=== PATIENT | female | born 1975 | race Two or more races ===

== ENCOUNTER 2019-12-04 14:22 | Inpatient (IN) | payer BC ==
[~2019-12-04] VITALS: Ht 157.5 cm; Wt 82.9 kg
[~2019-12-04 14:22] MED LIST: ALPR0.254; BACL20TA PO; BUPR20DI; CARI350T22; CEPH500C PO; CITA-30; CLON0.5T; FENT25DI2 TD; GABA300C10 PO; HYDR-1421; HYDR25TA4; HYDR8TAB46 OR; LEVE500T22 PO; LISI-285; LISI10TA6 PO; PAR20T PO
[2019-12-04] MEDS ORDERED: SODIUM CHLORIDE 0.9% 1,000 ML IV ONE (14:45)
[2019-12-04 15:07] LABS: Basophils # (auto) 0 10 ^3/uL (0-0.2); Basophils % (auto) 0.2 % (0.0-2.0); Eosinophils # (auto) 0.3 10 ^3/uL (0-0.8); Eosinophils % (auto) 2.5 % (0.0-7.0); Hematocrit 32.2 % (36.0-46.0); Hemoglobin 10.8 g/dL (12.2-16.2); Lymphocytes % (auto) 8.7 % (10.0-50.0); Mean Corpuscular Hemoglobin 27.1 pg (28.0-32.0); Mean Corpuscular Hgb Conc. 33.6 g/dL (32.0-36.0); Mean Corpuscular Volume 80.7 fL (80.0-100.0); Monocytes # (auto) 0.2 10 ^3/uL (0-1.3); Monocytes % (auto) 1.4 % (0.0-12.0); Neutrophils # (auto) 10.1 10 ^3/uL (1.6-8.6); Neutrophils % (auto) 87.2 % (37.0-80.0); Platelet Count (auto) 250 10^3/uL (140-450); Red Blood Cells 3.98 10^6/uL (4.0-5.20); Red Cell Distribution Width 14.4 % (11.8-14.3); White Blood Cell 11.5 10^3/uL (4.4-10.8)
[2019-12-04 15:35] LABS: Albumin 3.5 g/dL (3.4-5.0); Anion Gap 10 (5-15); Blood Urea Nitrogen 13 mg/dL (7-18); Calcium 7.6 mg/dL (8.5-10.1); Carbon Dioxide 20 mmol/L (21-32); Chloride 105 mmol/L (98-107); Glucose 108 mg/dL (74-106); Magnesium 1.8 mg/dL (1.6-2.6); Sodium 135 mmol/L (136-145)
[2019-12-04 15:39] LABS: Alanine Aminotransferase 16 U/L (13-56); Alkaline Phosphatase 47 U/L (45-117); Aspartate Aminotransferase 15 U/L (15-37); BUN/Creatinine Ratio 13.3; Bilirubin, Total 0.9 mg/dL (0.2-1.0); GFR African American 80 mL/min; GFR Non-African American 66 mL/min; Total Protein 6.4 g/dL (6.4-8.2)
[2019-12-04 15:42] LABS: Potassium 2.5 mmol/L (3.5-5.1)
[2019-12-04] MEDS ORDERED: SODIUM CHLORIDE 0.9% 1,000 ML IVB ONE (15:55)
[2019-12-04] MEDS ORDERED: POTASSIUM CHL 20 Meq TABLET PO ONE (16:00)
[2019-12-04 16:31] LABS: INR 1.07 (0.9-1.15); Partial Thromboplastin Time 29.6 sec (23.64-32.05)
[2019-12-04] MEDS ORDERED: ACETAMINOPHEN 325 MG TAB PO ONE (17:15)
[2019-12-04 17:22] LABS: Urine Bacteria NONE SEEN /hpf (None Seen); Urine Blood Negative /uL (Negative); Urine Hyaline Cast FEW /lpf (0 - 2); Urine Specific Gravity 1.005 (1.001-1.035); Urine WBC <1 /hpf (0 - 5)
[2019-12-04 17:36] LABS: Alcohol, Urine < 3.0 mg/dL (0-10); Amphetamine Screen, Urine NEGATIVE (NEGATIVE); Barbiturate Scree,Urine NEGATIVE (NEGATIVE); Benzodiazephine Screen, Urine POSITIVE (NEGATIVE); Cannabinoid Screen, Urine NEGATIVE (NEGATIVE); Cocaine Screen, Urine NEGATIVE (NEGATIVE); Phencyclidine Screen, Urine NEGATIVE (NEGATIVE)
[2019-12-04 17:44] LABS: Opiate Scree,Urine POSITIVE (NEGATIVE)
[2019-12-04] MEDS ORDERED: ONDANSETRON HCL 4 MG/2 ML VIAL IV PRN (19:30)
[2019-12-04] MEDS ORDERED: MORPHINE SULF INJ 2 MG/ML SYRINGE 1ML IV PRN (19:30)
[2019-12-04] MEDS ORDERED: NITROGLYCERIN 0.4 MG SL TAB SL PRN (19:30)
[2019-12-04] MEDS: SOD CHL 0.9%/ KCL 40MEQ 1,000 ML IV SCH (20:00)
[2019-12-04] MEDS: OXYCODONE W/ ACETAMINOPHEN 5/325MG TABLET PO PRN (20:07)
[2019-12-04 21:35] VITALS: BP 138/72
--- NOTE | 2019-12-04 21:35 | NUR ---
Telemetry admit from ER RONNA WILSONACE admitted to Telemetry unit after SBAR received. Patient oriented to JUAN C MADDEN RN primary RN, unit, room, bed, and unit policies regarding patient care and visiting hours. Patient now on continuous telemetry monitoring, tele box # [id number] and telemetry reading on arrival to unit is SR 93. Patient placed on bedside oxygen, weighed by bedscale and encouraged to call if they need something. All questions and concerns addressed, patient verbalized understanding. fall precautions in place.
[2019-12-04 21:58] VITALS: BP 138/72
[2019-12-04] MEDS: DOCUSATE SOD 100 MG CAP PO SCH (22:00)
[2019-12-04] MEDS: HYDROmorphone HCL 2 MG/ML VL IV PRN (22:24)
[2019-12-04] MEDS ORDERED: PERCOT PO (23:24)
[2019-12-04] MEDS ORDERED: TIZA4CAP PO (23:24)
[2019-12-04] MEDS ORDERED: GABA-339 PO (23:24)
[2019-12-04] MEDS ORDERED: MORP1TAB14 PO (23:24)
[2019-12-04] MEDS ORDERED: HYDR2TAB58 PO (23:24)
[2019-12-04] MEDS ORDERED: ALPR0.5T PO (23:24)
--- NOTE | 2019-12-05 00:54 | NUR ---
SPOKE WITH HOSPITALIST PATIENT REPORTING CHRONIC BACK PAIN OF 8/10 WITH NO RELIEF AFTER ADMINISTERING PAIN MEDICATIONS SCHEDULE. NO NEW ORDERS RECEIVED BY GRIEVANCE AND APPEALS COORDINATOR STEPHEN.
[2019-12-05] MEDS: HYDROmorphone HCL 2 MG/ML VL IV PRN ×3 (03:22→13:02)
--- NOTE | 2019-12-05 03:22 | NUR ---
pain pain of 9/10 to back. patient medicated per md orders
[2019-12-05 05:00] VITALS: BP 115/74
[2019-12-05] MEDS: SOD CHL 0.9%/ KCL 40MEQ 1,000 ML IV SCH ×2 (05:49→15:30)
[2019-12-05] MEDS: OXYCODONE W/ ACETAMINOPHEN 5/325MG TABLET PO PRN (06:58)
--- NOTE | 2019-12-05 06:58 | NUR ---
pain 8/10 to back. patient medicated per md order
--- NOTE | 2019-12-05 07:07 | NUR ---
report given to dayshift rn. patient is awake and alert reports no distress
--- NOTE | 2019-12-05 07:28 | NUR ---
RECEIVED REPORT FROM [facility] SHIFT RN. PATIENT AWAKE, ALERT AND ORIENTED X4. DENIES SOB, REPORTS 8/10 BACK PAIN. WILL MEDICATE PER eMAR. PLAN OF CARE DISCUSSED, PATIENT VERBALIZED UNDERSTANDING. BED IN LOW AND LOCKED POSITION. CALL LIGHT AND PHONE WITHIN REACH. ENCOURAGED TO CALL FOR ASSISTANCE PRN. WILL CONTINUE TO MONITOR Q1HR AND PRN.
[2019-12-05 08:00] VITALS: BP 120/73
[2019-12-05 08:50] VITALS: BP 120/73
[2019-12-05] MEDS: DOCUSATE SOD 100 MG CAP PO SCH (10:00)
[2019-12-05] MEDS ORDERED: PANTOPRAZOLE 40 MG TAB PO SCH (10:00)
[2019-12-05] MEDS ORDERED: CYCL1TAB18 PO (10:19)
[2019-12-05] MEDS ORDERED: CHOL20007 PO ×2 (10:19→10:20)
[2019-12-05] MEDS ORDERED: NAP500T PO (10:19)
[2019-12-05] MEDS ORDERED: GABA300C10 PO (10:19)
[2019-12-05] MEDS ORDERED: MORP1TAB12 PO ×2 (10:19→10:21)
[2019-12-05 12:37] VITALS: BP 120/76
[2019-12-05] MEDS ORDERED: POTASSIUM CHL 20 Meq TABLET PO ONE (12:45)
[2019-12-05 16:18] VITALS: BP 100/66
--- NOTE | 2019-12-05 16:35 | NUR ---
PATIENT DISCHARGED AT THIS TIME PER MD'S ORDER. DISCHARGE SUMMARY AND FOLLOW UP INSTRUCTION GIVEN. PATIENT VERBALIZED UNDERSTANDING. IV DISCONTINUED AND TELE MONITOR SENT TO ICU. PATIENT AMBULATORY, ALERT AND ORIENTED X4 DURING DISCHARGE.
== END 2019-12-05 16:35 | disposition home or self-care (01) | DRG 392 ==
LOC: ER 14:22 → TELE 14:23 → TELE-CENTR 21:35
PROVIDERS: ADMIT Nurse Practitioner Acute Care; ATTEND Family Medicine
DX: K52.9 Noninfective gastroenteritis and colitis, unspecified (principal); D50.8 Other iron deficiency anemias; E66.9 Obesity, unspecified; E86.0 Dehydration; E86.1 Hypovolemia; E87.6 Hypokalemia; G89.29 Other chronic pain; I10 Essential (primary) hypertension; K59.00 Constipation, unspecified; F41.8 Other specified anxiety disorders; D72.829 Elevated white blood cell count, unspecified; F11.90 Opioid use, unspecified, uncomplicated; M54.5 Low back pain; I95.9 Hypotension, unspecified; Z68.33 Body mass index [BMI] 33.0-33.9, adult; Z79.899 Other long term (current) drug therapy; Z80.3 Family history of malignant neoplasm of breast; Z81.8 Family history of other mental and behavioral disorders; Z82.49 Family history of ischemic heart disease and other diseases of the circulatory system; Z83.3 Family history of diabetes mellitus; Z90.710 Acquired absence of both cervix and uterus
CPT/HCPCS: 36415; 70450; 71045; 80053; 80307; 80320; 81001; 81025; 83735; 84132; 84443; 84484; 85025; 85610; 85730; 93005; 96361; 96365; 96366; G0378

== ENCOUNTER 2022-03-19 22:34 | Emergency (ER) | payer BC ==
[~2022-03-19] VITALS: Ht 157.5 cm; Wt 79.5 kg
[~2022-03-19 22:34] MED LIST changes: -ALPR0.254; +ALPR0.5T PO; -BACL20TA PO; -BUPR20DI; -CARI350T22; -CEPH500C PO; +CHOL20007 PO; -CITA-30; -CLON0.5T; -FENT25DI2 TD; -GABA300C10 PO; -HYDR-1421; -HYDR8TAB46 OR; -LEVE500T22 PO; -LISI-285; +LISI-716 PO; -LISI10TA6 PO; +MORP1TAB12 PO; -PAR20T PO; +PERCOT PO; +TIZA4CAP PO
[2022-03-20 00:48] VITALS: BP 138/97
[2022-03-20] MEDS ORDERED: diphenhdrAMINE HCL 50 MG/1 ML VL IM ONE (03:15)
[2022-03-20] MEDS ORDERED: LORazepam 2MG/ML-1ML VIAL IM ONE (05:15)
== END 2022-03-20 05:31 | disposition home or self-care (01) ==
LOC: ER 22:34
DX: F41.9 Anxiety disorder, unspecified (principal); F30.9 Manic episode, unspecified; I10 Essential (primary) hypertension; Z90.710 Acquired absence of both cervix and uterus
CPT/HCPCS: 70450; 93005; 96372; 99284; J1200; J2060

== ENCOUNTER 2022-03-23 05:20 | Emergency (ER) | payer BC ==
[~2022-03-23] VITALS: Ht 157.5 cm; Wt 80.8 kg
[2022-03-23 06:24] LABS: Basophils # (auto) 0.1 10 ^3/uL (0-0.2); Basophils % (auto) 0.6 % (0.0-2.0); Eosinophils # (auto) 0.1 10 ^3/uL (0-0.8); Eosinophils % (auto) 0.7 % (0.0-7.0); Hematocrit 39.7 % (36.0-46.0); Hemoglobin 13.7 g/dL (12.2-16.2); Lymphocytes # (auto) 2.7 10 ^3/uL (0.4-5.4); Lymphocytes % (auto) 25.5 % (10.0-50.0); Mean Corpuscular Hemoglobin 27.4 pg (28.0-32.0); Mean Corpuscular Hgb Conc. 34.5 g/dL (32.0-36.0); Mean Corpuscular Volume 79.6 fL (80.0-100.0); Monocytes # (auto) 0.6 10 ^3/uL (0-1.3); Monocytes % (auto) 5.9 % (0.0-12.0); Neutrophils # (auto) 7.1 10 ^3/uL (1.6-8.6); Neutrophils % (auto) 67.3 % (37.0-80.0); Nucleated Red Blood Cells % 0.1 %; Red Blood Cells 4.99 10^6/uL (4.0-5.20); Red Cell Distribution Width 15.3 % (11.8-14.3); White Blood Cell 10.5 10^3/uL (4.4-10.8)
[2022-03-23 06:25] LABS: Albumin 4.1 g/dL (3.4-5.0); BUN/Creatinine Ratio 8.3; Calcium 9.5 mg/dL (8.5-10.1); Potassium 3.8 mmol/L (3.5-5.1)
[2022-03-23 06:27] LABS: Bilirubin, Total 0.3 mg/dL (0.2-1.0); Total Protein 7.8 g/dL (6.4-8.2)
[2022-03-23 06:32] LABS: INR 0.93 (0.9-1.15); Partial Thromboplastin Time 31.6 sec (24.6-33.4)
[2022-03-23] MEDS ORDERED: clonazePAM 0.5 MG TAB PO ONE (07:00)
[2022-03-23 08:02] LABS: Urine Bacteria FEW /hpf (None Seen); Urine Blood Negative /uL (Negative); Urine Specific Gravity 1.004 (1.001-1.035); Urine WBC 1 /hpf (0 - 5)
[2022-03-23 08:15] LABS: Alcohol, Urine < 3.0 mg/dL (0-10); Amphetamine Screen, Urine NEGATIVE (NEGATIVE); Barbiturate Scree,Urine NEGATIVE (NEGATIVE); Benzodiazephine Screen, Urine POSITIVE (NEGATIVE); Cannabinoid Screen, Urine NEGATIVE (NEGATIVE); Cocaine Screen, Urine NEGATIVE (NEGATIVE); Phencyclidine Screen, Urine NEGATIVE (NEGATIVE)
[2022-03-23 08:23] LABS: Opiate Scree,Urine NEGATIVE (NEGATIVE)
[2022-03-23] MEDS ORDERED: CLON0.5T3 GT (11:14)
[2022-03-23 12:00] VITALS: BP 149/100
== END 2022-03-23 12:08 | disposition home or self-care (01) ==
LOC: ER 05:20
DX: F13.930 Sedative, hypnotic or anxiolytic use, unspecified with withdrawal, uncomplicated (principal); F41.1 Generalized anxiety disorder; R25.1 Tremor, unspecified; I10 Essential (primary) hypertension; Z90.710 Acquired absence of both cervix and uterus; Z88.6 Allergy status to analgesic agent
CPT/HCPCS: 36415; 71045; 80053; 80307; 81001; 83880; 84443; 84484; 85025; 85610; 85730; 93005

== ENCOUNTER 2025-03-09 11:20 | Emergency (ER) | payer BC ==
[~2025-03-09] VITALS: Ht 157.5 cm; Wt 79.5 kg
[~2025-03-09 11:20] MED LIST changes: +CLON0.5T3 GT; -LISI-716 PO; +LISI10TA34 PO
[2025-03-09] MEDS: methylPREDNISolone SOD SUCC 40 MG/ML VL IM ONE (13:11)
[2025-03-09] MEDS: MORPHINE SULFATE 4 MG/ML SYR/VIAL IM ONE (13:27)
[2025-03-09] MEDS ORDERED: PRED20TA2 PO (14:36)
[2025-03-09] MEDS ORDERED: GABA-1250 PO (14:36)
--- NOTE | 2025-03-09 14:36 | ED.PDOC ---
History of Present Illness HPI Comments 49-year-old female patient presents to the clinic for pain to cheeks, forehead and chin. Patient states that she has history of trigeminal neuralgia. Patient states that she last had a flare-up about 5 years ago. Patient is unsure what medications she was given. Patient states that she felt an electric getting pain on left side of face. Patient is very anxious about the pain increasing and having a similar experience. Patient states that she is currently not pulling of the neurologist. Patient states she is not taking anything for the trigeminal neuralgia. Patient denies any stressful situations occurring today. Chief Complaint: Face pain Time Seen by MD: 11:29 Primary Care Provider: SURESH Ward Notes: Nurses Notes, Medications, Allergies Allergies: Coded Allergies: Tramadol (Unverified Adverse Reaction, Severe, 06/28/15) PATIENT STATES BACK OF THROAT ITCHES. Home Meds Active Scripts Ofloxacin (Otic) (FLOXIN OTIC) [address], 2 DROP OT QID for 7 Days, #56 DROP Prov:MARCELO DEVINE [facility] 03/09/25 Hydrocodone-Acetaminophen (Hydrocodone Bitartrate/AC 5-325 mg) 1 Tab Tab, 1 TAB PO Q6HP PRN for 2 Days, #8 TAB 0 Refills Prov:MARCELO DEVINE [facility] 03/09/25 Prednisone (Prednisone) 20 Mg Tab, 40 MG PO DAILY for 5 Days, #10 MG Prov:MARCELO DEVINE [facility] 03/09/25 Gabapentin (Gabapentin) 300 Mg Cap, 1 CAP PO TID, #90 CAP 3 Refills Prov:MARCELO DEVINE [facility] 03/09/25 Clonazepam (KlonoPIN TABLET) 0.5 Mg Tb, 0.5 MG GT qhs for 5 Days, #5 TAB Prov:JOLYNN FRANKLIN MD 03/23/22 Reported Medications Morphine Sulfate (Morphine Sulfate Cr) 15 Mg Tab, 1 TAB PO BID, #60 TAB 12/05/19 Cholecalciferol (VITAMIN D3) 2,000 Unit Tab, 1 TAB PO DAILY, #30 TAB 5 Refills 12/05/19 Tizanidine Hydrochloride (Zanaflex) 4 Mg Cap, 2 MG PO TID, #30 CAP 12/04/19 Alprazolam (Xanax) 0.5 Mg Tb, 1 TAB PO BID, #60 TAB 12/04/19 Oxycodone W/ Acetaminophen (Percocet 5/325MG) 1 Tab Tb, 1 TAB PO BID, #60 TAB 12/04/19 Lisinopril (Lisinopril) 10 Mg Tab, 10 MG PO DAILY for 30 Days, MG 09/07/15 Hydrochlorothiazide (Hydrochlorothiazide) 25 Mg Tab, #90 06/27/15 Discontinued Scripts Hydrocodone-Acetaminophen (Hydrocodone Bitartrate/AC 5-325 mg) 1 Tab Tab, 1 TAB PO Q6HR for 2 Days, #8 TAB 0 Refills Prov:MARCELO DEVINE [facility] 03/09/25 Information Source: Patient Mode of Arrival: Ambulatory Past Medical History PAST MEDICAL HISTORY: Anxiety, Depression, HTN Surgical History: Hysterectomy ORDER EDITOR History: No Pertinent ORDER EDITOR History Family History Family History: No family hx of HTN, Family hx of HTN Social History Smoker: Non-Smoker Alcohol: Occasionally Drugs: Denies Drug Use Lives In: Home Constitutional: denies: chills, diaphoresis, fatigue, fever, malaise, sweats, weakness, others EENTM: reports: ear pain Respiratory: denies: cough, hemoptysis, orthopnea, SOB at rest, shortness of breath, SOB with excertion, stridor, wheezing, others Genitourinary: denies: abnormal vagina bleeding, burning, dyspareunia, dysuria, flank pain, frequency, hematuria, incontinence, pain, , vagina discharge, urgency, others Neurological: reports: paresthesia Musculoskeletal: denies: back pain, gout, joint pain, joint swelling, muscle pain, muscle stiffness, neck pain, others Integumetry: denies: bruises, change in color, change in hair/nails, dryness, laceration, lesions, lumps, rash, wounds, others Allergic/Immunocompromised: denies: Difficulty Healing, Frequent Infections, Hives, Itching, others Hematologic/Lymphatic: denies: anemia, blood clots, easy bleeding, easy bruising, swollen glands, others Endocrine: denies: excessive hunger, excessive sweating, excessive thirst, excessive urination, flushing, intolerance to cold, intolerance to heat, unexplained weight gain, unexplained weight loss, others Psychiatric: denies: anxiety, bipolar disorder, depression, hopeless, panic disorder, schizophrenia, sleepless, suicidal, others All Other Systems: Reviewed and Negative Physical Exam General Appearance: No Apparent Distress, Normal HEENT: Pharynx Normal, TMs Normal, Other (erythema in the left ear canal) Neck: Full Range of Motion, Non-Tender, Normal, Normal Inspection Respiratory: Chest Non-Tender, Lungs Clear, No Accessory Muscle Use, No Respiratory Distress, Normal Breath Sounds Cardiovascular: No Edema, No JVD, No Murmur, No Gallop, Normal Peripheral Pul ses, Regular Rate/Rhythm Breast Exam: Deferred Gastrointestinal: No Organomegaly, Non Tender, No Pulsatile Mass, Normal Bowel Sounds, Soft Genitalia: Deferred Pelvic: Deferred Rectal: Deferred Extremities: No calf tenderness, Normal capillary refill, Normal inspection, Normal range of motion, Non-tender, No pedal edema Musculoskeletal : Apperance: Normal Neurologic: Alert, commercial real estate attorney II-XII nml as Tested, No Motor Deficits, Normal Affect, Normal Mood (anxious), No Sensory Deficits Cerebellar Function: Normal Reflexes: Normal Skin: Dry, Normal Color, Warm, Other (tenderness to bilateral cheeks and forehead, no neuro defecits noted) Lymphatic: No Adenopathy Was a procedure done? Was a procedure done?: No Differential Dx Considerations may include: trigeminal neuralgia, [place] Palsy, Anxiety X-Ray, Labs, Meds, VS Vital Signs Date Time Temp Pulse Resp B/P (MAP) Pulse Ox O2 Delivery O2 Flow Rate FiO2 03/09/25 16:05 98.7 78 16 124/89 (101) 97 98.7 03/09/25 15:10 72 18 135/72 03/09/25 13:27 80 17 132/95 03/09/25 12:44 80 17 97 Room Air 03/09/25 12:44 98.7 80 17 132/95 (107) 97 98.7 03/09/25 11:22 98.3 94 19 149/77 98 98.3 Current Medications Medications (Trade) Dose Ordered Sig/Manasa Route Start Time Stop Time Status Last Admin Methylprednisolone Sodium Succinate (Solu Medrol) 40 mg ONCE ONCE IM 03/09/25 12:45 03/09/25 13:09 DC 03/09/25 13:11 Morphine Sulfate 5 mg ONCE ONCE IM 03/09/25 12:45 03/09/25 13:23 DC 03/09/25 13:27 Ketorolac Tromethamine (Toradol Injection) 60 mg ONCE ONCE IM 03/09/25 14:45 03/09/25 14:52 DC 03/09/25 15:10 Lorazepam (Ativan Inj) 0.5 mg ONCE ONCE IM 03/09/25 15:45 03/09/25 15:46 DC 03/09/25 15:37 X-Ray, Labs, Meds, VS Comment On re-evaluation patient has symptomatic improvement. Patient is stable for discharge at this time. All test results and diagnostic imaging have been interpreted. All diagnostic findings, discharge care, and education instruction provided to the patient. Follow-up with PCP in 2-3 days Patient verbalized understanding, discharge instructions and agrees to treatment plan Vital signs are stable Patient is ambulatory Patient advised of which symptoms necessitate a return visit to the emergency room. Patient to return emergency room for any new worsening symptoms. Patient is aware that the purpose of this visit is for an acute medical emergency requiring emergent stabilization. Chronic conditions, including malignancies have not been ruled out. Patient is instructed to follow up with PCP as directed for continued care and workup. If unable to arrange follow up, patient is to return to the emergency room for reassessment. Patient was given verbal and written discharge instructions and acknowledges understanding Time of 1ST Reevaluation: 15:30 Reevaluation 1ST: Improved Time of 2ND Reevaluation: 16:40 Reevaluation 2ND: Improved Patient Education/Counseling: Diagnosis, Treatment, Prognosis Family Education/Counseling: No Family Present Change of Shift?: No SEPSIS Sepsis Screen Date sepsis recognized/suspect: Mar 09, 2025 Time Sepsis recognized/suspect: 1122 Recent Procedure: No On Antibiotic Therapy: No Respiratory Rate >20: No Heart Rate >90: No Temp<36 C (96.8 F) or >38.3 C: No SBP <90 or MAP <65 mmHG: No New Acute Mental Status Change: No Is the patient on CPAP, BIPAP,: No Vital Signs Date Time Temp Pulse Resp B/P (MAP) Pulse Ox O2 Delivery O2 Flow Rate FiO2 03/09/25 16:05 98.7 78 16 124/89 (101) 97 98.7 03/09/25 15:10 72 18 135/72 03/09/25 13:27 80 17 132/95 03/09/25 12:44 80 17 97 Room Air 03/09/25 12:44 98.7 80 17 132/95 (107) 97 98.7 03/09/25 11:22 98.3 94 19 149/77 98 98.3 Medications Medications Dose Ordered Sig/Manasa Route Start Time Stop Time Status Last Admin Dose Admin Ketorolac Tromethamine 60 mg ONCE ONCE IM 03/09/25 14:45 03/09/25 14:52 DC 03/09/25 15:10 Lorazepam 0.5 mg ONCE ONCE IM 03/09/25 15:45 03/09/25 15:46 DC 03/09/25 15:37 Methylprednisolone Sodium Succinate 40 mg ONCE ONCE IM 03/09/25 12:45 03/09/25 13:09 DC 03/09/25 13:11 Morphine Sulfate 5 mg ONCE ONCE IM 03/09/25 12:45 03/09/25 13:23 DC 03/09/25 13:27 Departure 1 Departure Time of Disposition: 16:55 Impression: Primary Impression: Trigeminal neuralgia pain Additional Impressions: Otitis externa Qualified Codes: H60.502 - Unspecified acute noninfective otitis externa, left ear Anxiety Disposition: 01 HOME / SELF CARE / HOMELESS Condition: Stable e-Prescriptions Ofloxacin (Otic) (FLOXIN OTIC) [address] 2 DROP OT QID for 7 Days, #56 DROP Prov: MARCELO DEVINE [facility] 03/09/25 Hydrocodone-Acetaminophen (Hydrocodone Bitartrate/AC 5-325 mg) 1 Tab Tab 1 TAB PO Q6HP PRN for 2 Days, #8 TAB 0 Refills Prov: MARCELO DEVINE [facility] 03/09/25 Prednisone (Prednisone) 20 Mg Tab 40 MG PO DAILY for 5 Days, #10 MG Prov: MARCELO DEVINE [facility] 03/09/25 Gabapentin (Gabapentin) 300 Mg Cap 1 CAP PO TID, #90 CAP 3 Refills Prov: MARCELO DEVINE [facility] 03/09/25 Critical Care Note Critical Care Time?: No Stability Stability form required: No Heart Score Heart Score: Heart Score Response (Comments) Value History N/A 0 EKG N/A 0 Age N/A 0 Risk Factors N/A 0 Troponin N/A 0 Total 0 MARCELO DEVINE [facility] Mar 09, 2025 14:36
[2025-03-09] MEDS: KETOROLAC TROMETH 60MG/2ML VIAL IM ONE (15:10)
[2025-03-09] MEDS: LORazepam 2MG/ML-1ML VIAL IM ONE (15:37)
[2025-03-09] MEDS ORDERED: HYDR-4902 PO ×2 (15:59→17:02)
[2025-03-09 16:05] VITALS: BP 124/89; PULSE 78; RESP 16; TEMP 98.7; O2SAT 97
[2025-03-09] MEDS ORDERED: OFL50TS OT (17:02)
== END 2025-03-09 16:08 | disposition home or self-care (01) ==
LOC: ER 11:20
DX: G50.0 Trigeminal neuralgia (principal); H60.92 Unspecified otitis externa, left ear; F41.9 Anxiety disorder, unspecified
CPT/HCPCS: 96372; 99285; J1885; J2060; J2270; J2919

== ENCOUNTER 2025-03-10 09:30 | Emergency (ER) | payer BC ==
[~2025-03-10] VITALS: Ht 157.5 cm; Wt 80.3 kg
[~2025-03-10 09:30] MED LIST changes: +GABA-1250 PO; +HYDR-4902 PO; +OFL50TS OT; +PRED20TA2 PO
--- NOTE | 2025-03-10 11:17 | ED.PDOC ---
Roma. trauma (HPI) HPI Comments Patient with a history of trigeminal neuralgia presents with persistent left- sided electrical shocking sensation or pain. She has been experiencing this pain on the left side since 8:00 a.m. today. The pain is described as a shocking sensation that comes and goes with no specific patterns. She had a similar episode yesterday and was seen yesterday for the same complaint. She admits she has a history of trigeminal neuralgia and was diagnosed two or t hree years ago by her PCP. Also has a history of high blood pressure and lupus Denies fever, chills, night sweats Denies persistent nausea Denies vomiting Denies thunderclap headache Denies photophobia, phonophobia Denies head trauma around the time headache started Denies family history of brain issues persistent headaches Denies taking any blood thinner medication Denies vision/hearing changes Denies focal loss of strength/sensation or changes in speech e-Prescriptions Ofloxacin (Otic) (FLOXIN OTIC) [address] 2 DROP OT QID for 7 Days, #56 DROP Prov: SYBILMARCELO [facility] 03/09/25 Hydrocodone-Acetaminophen (Hydrocodone Bitartrate/AC 5-325 mg) 1 Tab Tab 1 TAB PO Q6HP PRN for 2 Days, #8 TAB 0 Refills Prov: MARCELO DEVINE [facility] 03/09/25 Prednisone (Prednisone) 20 Mg Tab 40 MG PO DAILY for 5 Days, #10 MG Prov: MARCELO DEVINE [facility] 03/09/25 Gabapentin (Gabapentin) 300 Mg Cap 1 CAP PO TID, #90 CAP 3 Refills Prov: MARCELO DEVINE [facility] 03/09/25 Chief Complaint: Face pain Time Seen by MD: 09:50 Primary Care Provider: SURESH Reviewed notes: Nurses Notes, Medications, Allergies Allergies: Coded Allergies: Tramadol (Unverified Adverse Reaction, Severe, 06/28/15) PATIENT STATES BACK OF THROAT ITCHES. Home Meds Active Scripts Ofloxacin (Otic) (FLOXIN OTIC) [address], 2 DROP OT QID for 7 Days, #56 DROP Prov:YARA DEVINEE [facility] 03/09/25 Hydrocodone-Acetaminophen (Hydrocodone Bitartrate/AC 5-325 mg) 1 Tab Tab, 1 TAB PO Q6HP PRN for 2 Days, #8 TAB 0 Refills Prov:MARCELO DEVINE [facility] 03/09/25 Prednisone (Prednisone) 20 Mg Tab, 40 MG PO DAILY for 5 Days, #10 MG Prov:MARCELO DEVINE [facility] 03/09/25 Gabapentin (Gabapentin) 300 Mg Cap, 1 CAP PO TID, #90 CAP 3 Refills Prov:MARCELO DEVINE [facility] 03/09/25 Clonazepam (KlonoPIN TABLET) 0.5 Mg Tb, 0.5 MG GT qhs for 5 Days, #5 TAB Prov:JOLYNN FRANKLIN MD 03/23/22 Reported Medications Morphine Sulfate (Morphine Sulfate Cr) 15 Mg Tab, 1 TAB PO BID, #60 TAB 12/05/19 Cholecalciferol (VITAMIN D3) 2,000 Unit Tab, 1 TAB PO DAILY, #30 TAB 5 Refills 12/05/19 Tizanidine Hydrochloride (Zanaflex) 4 Mg Cap, 2 MG PO TID, #30 CAP 12/04/19 Alprazolam (Xanax) 0.5 Mg Tb, 1 TAB PO BID, #60 TAB 12/04/19 Oxycodone W/ Acetaminophen (Percocet 5/325MG) 1 Tab Tb, 1 TAB PO BID, #60 TAB 12/04/19 Lisinopril (Lisinopril) 10 Mg Tab, 10 MG PO DAILY for 30 Days, MG 09/07/15 Hydrochlorothiazide (Hydrochlorothiazide) 25 Mg Tab, #90 06/27/15 Discontinued Scripts Hydrocodone-Acetaminophen (Hydrocodone Bitartrate/AC 5-325 mg) 1 Tab Tab, 1 TAB PO Q6HR for 2 Days, #8 TAB 0 Refills Prov:MARCELO DEVINE [facility] 03/09/25 Information Source: Patient Mode of Arrival: Ambulatory Past Medical History PAST MEDICAL HISTORY: Anxiety, Depression, HTN Surgical History: Hysterectomy MEDICARE SALES EXECUTIVE History: No Pertinent MEDICARE SALES EXECUTIVE History Family History Family History: No family hx of HTN, Family hx of HTN Social History Smoker: Non-Smoker Alcohol: Occasionally Drugs: Denies Drug Use Lives In: Home All Other Systems: Reviewed and Negative (PER HPI) Physical Exam General Appearance: No Apparent Distress, Normal HEENT: Head (Normocephalic atraumatic), Normal ENT Inspection, Pharynx Normal, TMs Normal Neck: Full Range of Motion, Non-Tender, Normal, Normal Inspection Respiratory: Chest Non-Tender, Lungs Clear, No Accessory Muscle Use, No Respiratory Distress, Normal Breath Sounds Cardiovascular: No Edema, No JVD, No Murmur, No Gallop, Normal Peripheral Pulses, Regular Rate/Rhythm Breast Exam: Deferred Gastrointestinal: No Organomegaly, Non Tender, No Pulsatile Mass, Normal Bowel Sounds, Soft Genitalia: Deferred Pelvic: Deferred Rectal: Deferred Extremities: No calf tenderness, Normal capillary refill, Normal inspection, Normal range of motion, Non-tender, No pedal edema Musculoskeletal : Apperance: Normal Neurologic: Alert, developmental education instructor II-XII nml as Tested, No Motor Deficits, Normal Affect, Normal Mood, No Sensory Deficits, Other (Romberg and pronator drift negative) Cerebellar Function: Normal Reflexes: Normal Skin: Dry, Normal Color, Warm Lymphatic: No Adenopathy Was a procedure done? Was a procedure done?: No Differential Diagnosis Multiple Trauma: Other X-Ray, Labs, Meds, VS Vital Signs Date Time Temp Pulse Resp B/P (MAP) Pulse Ox O2 Delivery O2 Flow Rate FiO2 03/10/25 13:49 87 17 98 Room Air 03/10/25 13:49 98.7 78 16 139/99 (112) 97 98.7 03/10/25 09:33 97.7 97 18 126/81 95 97.7 Lab Test 03/10/25 12:33 03/10/25 11:47 Range/Units Urine Color Colorless Yellow Urine Clarity Clear Clear Urine pH 6.0 5.0-9.0 Urine Specific [place] 1.007 1.001-1.035 Urine Protein Negative Negative Urine Ketones Negative Negative Urine Blood Negative Negative /uL Urine Nitrite Negative Negative Urine Bilirubin Negative Negative Urine Urobilinogen Normal Negative mg/dL Urine Leukocyte Esterase Negative Negative /uL Urine RBC None seen 0 - 4 /hpf Urine Microscopic WBC < 1 0-5 /HPF Urine Squamous Epithelial Cells Few <5 /hpf Urine Bacteria None seen None Seen /hpf Urine Glucose Normal Normal mg/dL Urine Opiates Screen Pos NEGATIVE Urine Fentanyl Screen Neg NEGATIVE Urine Barbiturates Screen Neg NEGATIVE Urine Phencyclidine Screen Neg NEGATIVE Urine Amphetamines Screen Neg NEGATIVE Urine Benzodiazepines Screen Neg NEGATIVE Urine Cocaine Screen Neg NEGATIVE Urine Cannabinoids Screen Neg NEGATIVE White Blood Count 12.6 H 4.4-10.8 10^3/uL Red Blood Count 4.48 4.0-5.20 10^6/uL Hemoglobin 12.3 12.2-16.2 g/dL Hematocrit 36.0 36.0-46.0 % Mean Corpuscular Volume 80.3 80.0-100.0 fL Mean Corpuscular Hemoglobin 27.5 L 28.0-32.0 pg Mean Corpuscular Hemoglobin Concent 34.2 32.0-36.0 g/dL Red Cell Distribution Width 14.6 H 11.8-14.3 % Platelet Count 398 140-450 10^3/uL Mean Platelet Volume 8.3 6.9-10.8 fL Neutrophils (%) (Auto) 85.4 H 37.0-80.0 % Lymphocytes (%) (Auto) 12.5 10.0-50.0 % Monocytes (%) (Auto) 2.0 0.0-12.0 % Eosinophils (%) (Auto) 0.0 0.0-7.0 % Basophils (%) (Auto) 0.1 0.0-2.0 % Neutrophils # (Auto) 10.7 H 1.6-8.6 10 ^3/uL Lymphocytes # (Auto) 1.6 0.4-5.4 10 ^3/uL Monocytes # (Auto) 0.3 0-1.3 10 ^3/uL Eosinophils # (Auto) 0 0-0.8 10 ^3/uL Basophils # (Auto) 0 0-0.2 10 ^3/uL Nucleated Red Blood Cells 0.0 % Erythrocyte Sedimentation Rate 15 0-20 mm/hr Sodium Level 137 136-145 mmol/L Potassium Level 4.0 3.5-5.1 mmol/L Chloride Level 101 98-107 mmol/L Carbon Dioxide Level 26 20-31 mmol/L Anion Gap 10 5-15 Blood Urea Nitrogen 10 9-23 mg/dL Creatinine 0.86 0.550-1.02 mg/dL Glomerular Filtration Rate Calc 84 >90 mL/min BUN/Creatinine Ratio 11.6 10.0-20.0 Serum Glucose 140 H 74-106 mg/dL Calcium Level 9.8 8.7-10.4 mg/dL C-Reactive Protein High Sensitivity 0.39 <1.0 mg/dL Thyroid Stimulating Hormone (TSH) 0.37 L 0.55-4.78 uIU/mL Current Medications Medications (Trade) Dose Ordered Sig/Manasa Route Start Time Stop Time Status Last Admin Carbamazepine (TEGretol TABLET) 800 mg ONCE ONCE PO 03/10/25 11:30 03/10/25 11:31 DC 03/10/25 12:40 X-Ray, Labs, Meds, VS Comment On reevaluation, patient had symptomatic improvement. Patient is stable for discharge at this time. External notes reviewed. Test results and diagnostic imaging interpreted. All diagnostic findings, discharge care, education and instructions provided Follow-up with PCP in 2 to 3 days Patient verbalized understanding and agreed to treatment plan Vital signs stable, afebrile, no acute distress noted Patient ambulatory with strong steady gait Advised to return precautions for any new or worsening symptoms, return to ER immediately for re-evaluation Patient is aware that the purpose of this visit was for an acute medical emergency requiring emergent stabilization. Chronic conditions, including malignancies have not been ruled out. Patient is instructed to follow up with PCP as directed and discharge instructions for continued care and workup. If unable to arrange follow-up, patient is to return to the emergency department for reassessment. Patient (parent or legal guardian if applicable) was given verbal and written discharge instructions and acknowledges understanding. Time of 1ST Reevaluation: 13:00 Reevaluation 1ST: Improved Patient Education/Counseling: Diagnosis, Treatment Family Education/Counseling: Diagnosis, Treatment Departure 1 Departure Time of Disposition: 13:35 Impression: Primary Impression: Trigeminal neuralgia pain Disposition: HOME / SELF CARE / HOMELESS Condition: Stable Discharged With: Self Critical Care Note Critical Care Time?: No Stability Stability form required: No Heart Score Heart Score: Heart Score Response (Comments) Value History N/A 0 EKG N/A 0 Age N/A 0 Risk Factors N/A 0 Troponin N/A 0 Total 0 GISELLE HERNANDES NP Mar 10, 2025 11:17
[2025-03-10] MEDS: carBAMazepine 200 MG TAB PO ONE (11:42)
--- NOTE | 2025-03-10 12:14 | DVH ---
CT HEAD WITHOUT CONTRAST Indication: R/o serious pathology EXAM DATE: 03/10/2025 11:31 AM COMPARISON: None TECHNIQUE: CT of the head without intravenous contrast. RADIATION DOSE: CTDIvol: 55.8 mGy, DLP: 55.8 mGy*cm FINDINGS: There is no intracranial hemorrhage. There is no extra-axial fluid, mass, mass effect or midline shif t. The ventricles are midline and normal in size. Basilar cisterns are patent. Vázquez-white differentia tion is maintained. Empty sella. The paranasal sinuses and mastoids are well-pneumatized. Imaged portion of the orbits are unremarkabl e. IMPRESSION: No intracranial hemorrhage or mass effect. Empty sella.
[2025-03-10 12:15] LABS: Chloride 101 mmol/L (98-107); Potassium 4.0 mmol/L (3.5-5.1); Sodium 137 mmol/L (136-145)
[2025-03-10 12:16] LABS: Anion Gap 10 (5-15); Calcium 9.8 mg/dL (8.7-10.4); Carbon Dioxide 26 mmol/L (20-31)
[2025-03-10 12:21] LABS: BUN/Creatinine Ratio 11.6 (10.0-20.0); Blood Urea Nitrogen 10 mg/dL (9-23); Glucose 140 mg/dL (74-106)
[2025-03-10 12:23] LABS: Hematocrit 36.0 % (36.0-46.0); Hemoglobin 12.3 g/dL (12.2-16.2); Mean Corpuscular Hemoglobin 27.5 pg (28.0-32.0); Mean Corpuscular Volume 80.3 fL (80.0-100.0); Nucleated Red Blood Cells % 0.0 %
[2025-03-10 12:40] LABS: Urine Protein, UAD Negative (Negative)
[2025-03-10 12:48] LABS: Amphetamine Screen, Urine Neg (NEGATIVE); Barbiturate Scree,Urine Neg (NEGATIVE); Benzodiazephine Screen, Urine Neg (NEGATIVE); Cannabinoid Screen, Urine Neg (NEGATIVE); Cocaine Screen, Urine Neg (NEGATIVE); Opiate Scree,Urine Pos (NEGATIVE); Phencyclidine Screen, Urine Neg (NEGATIVE)
[2025-03-10 13:49] VITALS: BP 139/99; PULSE 87; RESP 17; TEMP 98.7; O2SAT 98
== END 2025-03-10 13:54 | disposition home or self-care (01) ==
LOC: ER 09:30
DX: G50.0 Trigeminal neuralgia (principal); F41.9 Anxiety disorder, unspecified; F32.A Depression, unspecified; I10 Essential (primary) hypertension; Z88.5 Allergy status to narcotic agent; Z90.710 Acquired absence of both cervix and uterus; Z79.899 Other long term (current) drug therapy
CPT/HCPCS: 36415; 70450; 80048; 80307; 81001; 84443; 85025; 85652; 86141

== ENCOUNTER 2025-04-09 15:44 | Emergency (ER) | payer BC ==
[~2025-04-09] VITALS: Ht 157.5 cm; Wt 77.6 kg
[2025-04-09 15:45] VITALS: BP 129/83; PULSE 104; RESP 15; TEMP 97.6; O2SAT 98
[2025-04-09] MEDS: ONDANSETRON ODT 4 MG TAB PO ONE (16:51)
--- NOTE | 2025-04-09 16:51 | ED.PDOC ---
HPI (NEURO) HPI Comments A 49 YEAR OLD FEMALE PRESENTS TO THE ED WITH COMPLAINT OF HEADACHE. PATIENT REPORTS THAT SHE HAS HISTORY OF TRIGEMINAL NEURALGIA AND HAS BEEN ON 800MG OF CARBAMAZEPINE DAILY BY HER NEUROLOGIST FOR RELIEF IN HEADACHES. PATIENT RELAYS THAT SHE HAS HAD PERSISTENT HEADACHES WITH ASSOCIATED NAUSEA, VOMITING, AND EAR PAIN FOR THE PAST 5 DAYS, NOTING THAT HER MEDICATION PROVIDES NO RELIEF. PATIENT STATES THAT SHE WAS SEEN IN THE ED A MONTH AGO FOR SIMILAR SYMPTOMS PATIENT DENIES FEVER, CHILLS, SHORTNESS OF BREATH, CHEST PAIN, ABDOMINAL PAIN, OR OTHER COMPLAINTS. NO OTHER SYMPTOMS OR MODIFYING FACTORS AT THIS TIME. PATIENT IS ALERT, ORIENTED X 4, AND HAS STEADY GAIT. Chief Complaint: Headache Time Seen by MD: 16:49 Primary Care Provider: SURESH Ward Notes: Nurses Notes, Medications, Allergies Information Source: Patient Mode of Arrival: Ambulatory Severity: Moderate Headache Severity: Moderate Timing: Days Duration: Since onset Prehospital treatment: None Headache Quality: Sharp Headache Location: Generalized Onset: At rest Circumstances: Spontaneous History of: Known Headache Disorder Associated Signs and Symptoms: Headache, Nausea, Vomiting Past Medical History PAST MEDICAL HISTORY: Anxiety, Depression, HTN Past Medical History (Other): TRIGEMINAL NEURALGIA Surgical History: Hysterectomy RAIL CAR WELDER History: No Pertinent RAIL CAR WELDER History Family History Family History: No family hx of HTN, Family hx of HTN Social History Smoker: Non-Smoker Alcohol: Occasionally Drugs: Denies Drug Use Lives In: Home Constitutional: reports: others (ANXIETY ); denies: chills, diaphoresis, fatigue, fever, malaise, sweats, weakness EENTM: reports: ear pain; denies: blurred vision, double vision, ear bleeding, ear discharge, ear drainage, ear ringing, eye pain, eye redness, hearing loss, mouth pain, mouth swelling, nasal discharge, nose bleeding, nose congestion, nose pain, photophobia, tearing, throat pain, throat swelling, voice changes, others Respiratory: denies: cough, hemoptysis, orthopnea, SOB at rest, shortness of breath, SOB with excertion, stridor, wheezing, others Cardiovascular: denies: chest pain, dizzy spells, diaphoresis, Dyspnea on exertion, edema, irregular heart beat, left arm pain, lightheadedness, palpitations, PND, syncope, others Gastrointestinal: reports: nausea, vomiting; denies: abdomen distended, abdominal pain, blood streaked bowels, constipated, diarrhea, dysphagia, difficulty swallowing, hematemesis, melena, poor appetite, poor fluid intake, rectal bleeding, rectal pain, others Genitourinary: denies: abnormal vagina bleeding, burning, dyspareunia, dysuria, flank pain, frequency, hematuria, incontinence, pain, , vagina discharge, urgency, others Neurological: reports: headache; denies: dizziness, fainting, left sided numbness, left sided weakness, numbness, paresthesia, pre-existing deficit, right sided numbness, right sided weakness, seizure, speech problems, tingling, tremors, weakness, others Musculoskeletal: denies: back pain, gout, joint pain, joint swelling, muscle pain, muscle stiffness, neck pain, others Integumetry: denies: bruises, change in color, change in hair/nails, dryness, laceration, lesions, lumps, rash, wounds, others Allergic/Immunocompromised: denies: Difficulty Healing, Frequent Infections, Hives, Itching, others Hematologic/Lymphatic: denies: anemia, blood clots, easy bleeding, easy bruising, swollen glands, others Endocrine: denies: excessive hunger, excessive sweating, excessive thirst, excessive urination, flushing, intolerance to cold, intolerance to heat, unexplained weight gain, unexplained weight loss, others Psychiatric: reports: anxiety; denies: bipolar disorder, depression, hopeless, panic disorder, schizophrenia, sleepless, suicidal, others All Other Systems: Reviewed and Negative Physical Exam General Appearance: Mild Distress, Normal, Other (ANXIETY ) HEENT: Normal ENT Inspection, PERRL/EOMI, Pharynx Normal, TMs Normal Neck: Full Range of Motion, Non-Tender, Normal, Normal Inspection Respiratory: Chest Non-Tender, Lungs Clear, No Accessory Muscle Use, No Respiratory Distress, Normal Breath Sounds Cardiovascular: No Edema, No JVD, No Murmur, No Gallop, Normal Peripheral Pulses, Regular Rate/Rhythm Breast Exam: Deferred Gastrointestinal: No Organomegaly, Non Tender, No Pulsatile Mass, Normal Bowel Sounds, Soft Genitalia: Deferred Pelvic: Deferred Rectal: Deferred Extremities: No calf tenderness, Normal capillary refill, Normal inspection, Normal range of motion, Non-tender, No pedal edema Musculoskeletal : Apperance: Normal Neurologic: Alert, director loan II-XII nml as Tested, Headache, No Motor Deficits, Normal Affect, Normal Mood, No Sensory Deficits Cerebellar Function: Normal Reflexes: Normal Skin: Dry, Normal Color, Warm Peripheral Pulses: 2+ carotid (R), 2+ carotid (L) Lymphatic: No Adenopathy Was a procedure done? Was a procedure done?: No Differential Diagnosis (SZ) Headache: Cluster, Migraine, Sinusitis, Trigeminal Neuralgia X-Ray, Labs, Meds, VS Vital Signs Date Time Temp Pulse Resp B/P (MAP) Pulse Ox O2 Delivery O2 Flow Rate FiO2 04/09/25 15:45 97.6 104 15 129/83 98 97.6 Current Medications Medications (Trade) Dose Ordered Sig/Manasa Route Start Time Stop Time Status Last Admin Ondansetron HCl (Zofran Po) 4 mg ONCE ONCE PO 04/09/25 16:45 04/09/25 16:46 DC 04/09/25 16:51 Metoclopramide HCl (Reglan Tablet) 10 mg ONCE ONCE PO 04/09/25 17:15 04/09/25 17:16 DC 04/09/25 17:24 Ketorolac Tromethamine (Toradol Injection) 60 mg ONCE ONCE IM 04/09/25 17:15 04/09/25 17:16 DC 04/09/25 17:24 PATIENT: BOYD WILSONCCT: [id number]: [id number] : 1975 LOC: ER ROOM / BED: / AGE / SEX: 49 / F ADM STATUS: REG ER SERVICE [id number] ORDERING PHYSICIAN: KAYLYNN GOOD PROCEDURE(s): HWOCT - HEAD WITHOUT CONTRAST REASON: LEFT SIDE HEADACHE, HX OF TRIGEMINAL NEURALGIA ORDER NUMBER(s): [id number], ACCESSION NUMBER(s): [id number] CT HEAD WITHOUT CONTRAST INDICATION: LEFT SIDE HEADACHE, HX OF TRIGEMINAL NEURALGIA COMPARISON: CT HEAD WITHOUT CONTRAST on DOS: 03/10/25, HEAD WITHOUT CONTRAST on DOS: 03/20/22 TECHNIQUE: CT of the head without intravenous contrast. RADIATION DOSE: CTDIvol: 55 mGy, DLP: 982 mGy*cm FINDINGS: There is no evidence of acute intracranial hemorrhage, extra-axial collection, mass effect, midline shift, herniation or hydrocephalus. The ventricles, sulci and cisterns are age appropriate. The clements-white differentiation is intact. The visualized paranasal sinuses and mastoid air cells are clear. The surrounding soft tissues and osseous structures are unremarkable. IMPRESSION: 1. No evidence of acute intracranial hemorrhage, mass effect or hydrocephalus. ATED BY: ANNE MARIE DODSON MD DICTATED DATE/TIME: 04/09/251713 SIGNED BY: ANNE MARIE DODSON MD SIGNED DATE/TIME: 04/09/251713 CC: X-Ray, Labs, Meds, VS Comment EXTERNAL MEDICAL RECORDS REVIEWED: [NONE] INDEPENDENT HISTORIANS: [NONE] SOCIAL DETERMINANTS OF HEALTH: [NONE] LABS ORDERED: NONE REVIEWED AND INTERPRETED RESULTS: CT BRAIN IMAGING ORDERED: CT BRAIN TREATMENTS ORDERED: ZOFRAN 4MG PO, TORADOL 60MG IM, REGLAN 10MG PO PROCEDURES PERFORMED: NONE CRITICAL CARE TIME: NONE I HAVE DISCUSSED THE PATIENT WITH THE ATTENDING PHYSICIAN DR. RUBIO AND HE AGREES WITH THE PATIENT'S PLAN OF CARE AND DISPOSITION. BASED ON HISTORY OF PRESENT ILLNESS, AND PHYSICAL EXAM, PATIENT WILL BE DISCHARGED HOME. DISCUSSED PLAN FOR DISCHARGE HOME.RX: REGLAN 10MG SHARED DECISION MAKING: DISCUSSED WITH PATIENT THAT THEIR WORKUP WAS NORMAL. PATIENT INSTRUCTED TO FOLLOW UP WITH PRIMARY CARE PROVIDER IN 1-2 DAYS FOR RE- EVALUATION OF SYMPTOMS. PATIENT VERBALIZES UNDERSTANDING TO RETURN TO ED FOR NEW OR WORSENING SYMPTOMS OR IF FOLLOW UP WITH PCP CANNOT BE OBTAINED. PATIENT FEELS COMFORTABLE GOING HOME AT THIS TIME. ALL QUESTIONS ADDRESSED AT TIME OF DISCHARGE. Time of 1ST Reevaluation: 17:41 Reevaluation 1ST: Improved Patient Education/Counseling: Diagnosis, Treatment, Need For Follow Up Family Education/Counseling: Diagnosis, Treatment, Need For Follow Up Medical Screening: No EMC Exist At This Time Departure 1 Departure Time of Disposition: 17:41 Impression: Primary Impression: Trigeminal neuralgia pain Disposition: 01 HOME / SELF CARE / HOMELESS Condition: Stable Additional Instructions: FOLLOW-UP WITH PCP IN 1 TO 2 DAYS. TAKE MEDICATIONS PRESCRIBED. RETURN TO ED FOR ANY NEW OR WORSENING SYMPTOMS. e-Prescriptions Metoclopramide Hcl (Reglan) 10 Mg Tab 10 MG PO TID, #30 TAB Prov: KAYLYNN GOOD 04/09/25 Discharged With: Self, Spouse Critical Care Note Critical Care Time?: No Stability Stability form required: No Heart Score Heart Score: Heart Score Response (Comments) Value History N/A 0 EKG N/A 0 Age N/A 0 Risk Factors N/A 0 Troponin N/A 0 Total 0 I personally scribed for KAYLYNN GOOD ([email or web address]) on 04/09/25 at 16:51. Electronically submitted by Edmundo Powers ([email or web address]). I personally scribed for KAYLYNN GOOD ([email or web address]) on 04/09/25 at 17:22. Electronically submitted by Edmundo Powers ([email or web address]). KAYLYNN GOOD Apr 09, 2025 16:51
--- NOTE | 2025-04-09 17:17 | DVH ---
CT HEAD WITHOUT CONTRAST INDICATION: LEFT SIDE HEADACHE, HX OF TRIGEMINAL NEURALGIA COMPARISON: CT HEAD WITHOUT CONTRAST on DOS: 03/10/25, HEAD WITHOUT CONTRAST on DOS: 03/20/22 TECHNIQUE: CT of the head without intravenous contrast. RADIATION DOSE: CTDIvol: 55 mGy, DLP: 982 mGy*cm FINDINGS: There is no evidence of acute intracranial hemorrhage, extra-axial collection, mass effect, midline s hift, herniation or hydrocephalus. The ventricles, sulci and cisterns are age appropriate. The clements -white differentiation is intact. The visualized paranasal sinuses and mastoid air cells are clear. The surrounding soft tissues and osseous structures are unremarkable. IMPRESSION: 1. No evidence of acute intracranial hemorrhage, mass effect or hydrocephalus.
[2025-04-09] MEDS: KETOROLAC TROMETH 60MG/2ML VIAL IM ONE (17:24)
[2025-04-09] MEDS: METOCLOPRAMIDE HCL 10 MG TAB PO ONE (17:24)
[2025-04-09] MEDS ORDERED: METO-281 PO (17:41)
== END 2025-04-09 17:45 | disposition home or self-care (01) ==
LOC: ER 15:44
DX: G50.0 Trigeminal neuralgia (principal); I10 Essential (primary) hypertension; Z90.710 Acquired absence of both cervix and uterus; Z79.899 Other long term (current) drug therapy
CPT/HCPCS: 70450; 96372; 99285; J1885; J8597; Q0162